=== PATIENT | male | born 2000 | race Caucasian/White ===

== ENCOUNTER 2020-07-15 19:31 | Emergency (ER) | payer OTHER ==
[2020-07-15] MEDS ORDERED: ONDANSETRON ODT 4 MG PO ONE (20:00)
[2020-07-15] MEDS ORDERED: ONDANSETRON ODT 4 MG ONE (20:15)
[2020-07-15 20:43] LABS: BASOPHILS % (AUTO) 0 % (0-1); EOSINOPHILS % (AUTO) 0 % (1-7); LYMPHOCYTES % (AUTO) 7 % (22-44); MEAN CORPUSCULAR HEMOGLOBIN 30.5 pg (27.5-34.5); MEAN CORPUSCULAR HGB CONC 34.4 g/dL (33.2-36.2); MEAN PLATELET VOLUME 7.7 fL (7.4-10.4); MONOCYTES % (AUTO) 4 % (2-9); NEUTROPHILS % (AUTO) 89 % (42-75); PLATELET COUNT 276 x10^3/uL (130-400); RED BLOOD COUNT 5.25 x10^6/uL (4.38-5.82); RED CELL DISTRIBUTION WIDTH 13.1 % (9.4-14.8)
[2020-07-15 20:57] LABS: ALBUMIN 5.1 g/dL (3.4-5.0); ANION GAP 11 mmol/L (5-15); CALCIUM 10.3 mg/dL (8.5-10.1); CHLORIDE 100 mmol/L (98-107)
[2020-07-15 21:00] LABS: ALANINE AMINOTRANSFERASE 34 U/L (12-78); ALKALINE PHOSPHATASE 97 U/L (45-117); CREATININE 1.24 mg/dL (0.7-1.3); TOTAL PROTEIN 8.8 g/dL (6.4-8.2)
[2020-07-15] MEDS ORDERED: PANTOPRAZOLE 40 MG IV IV ONE (21:00)
[2020-07-15] MEDS ORDERED: MORPHINE SULFATE 4 MG/ML, 1ML IVPush PRN (21:00)
[2020-07-15] MEDS ORDERED: ONDANSETRON 2MG/ML, 2ML IVPush ONE (21:00)
[2020-07-15] MEDS ORDERED: SODIUM CHLORIDE 0.9% 1,000ML IVBOLUS ONE (21:00)
[2020-07-15 21:32] LABS: MD SCAN
[2020-07-15] MEDS ORDERED: PANTOPRAZOLE 40 MG IV ONE (21:44)
[2020-07-16 00:40] VITALS: BP 110/55
[2020-07-16] MEDS ORDERED: OMNIPAQUE 350 MG/ML, 100ML BOTTLE ONE (00:50)
== END 2020-07-16 00:45 | disposition home or self-care (01) ==
LOC: ED 20:43
DX: R10.84 Generalized abdominal pain (principal); R11.2 Nausea with vomiting, unspecified; M79.10 Myalgia, unspecified site
CPT/HCPCS: 36415; 74177; 76700; 80053; 83690; 85025; 93005; 96361; 96374; 99285; C9113; J7030; Q0162; Q9967